=== PATIENT | male | born 1965 | race Caucasian/White ===

== ENCOUNTER 2022-05-17 14:48 | Outpatient (CLI) | payer OTHER | END 2022-05-17 14:49 | disposition home or self-care (01) | LOC: BICRAD 14:48 | PROVIDERS: ATTEND Nurse Practitioner Family | DX: J20.9 Acute bronchitis, unspecified (principal) | CPT/HCPCS: 71046 ==

== ENCOUNTER 2023-08-27 09:17 | Outpatient (CLI) | payer BC | END 2023-08-27 09:18 | disposition home or self-care (01) | LOC: RAD-FRANK 09:17 | PROVIDERS: ATTEND Nurse Practitioner Family | DX: R07.89 Other chest pain (principal) | CPT/HCPCS: 71046 ==

== ENCOUNTER 2023-09-06 07:51 | Outpatient (CLI) | payer OTHER | END 2023-09-06 07:52 | disposition home or self-care (01) | LOC: BICULT 07:51 | PROVIDERS: ATTEND Nurse Practitioner Family | DX: R10.12 Left upper quadrant pain (principal); K83.8 Other specified diseases of biliary tract; K76.0 Fatty (change of) liver, not elsewhere classified; N28.1 Cyst of kidney, acquired; R16.1 Splenomegaly, not elsewhere classified | CPT/HCPCS: 76700 ==

== ENCOUNTER 2024-09-08 07:17 | Outpatient (CLI) | payer OTHER | END 2024-09-08 07:18 | disposition home or self-care (01) | LOC: CT 07:17 | PROVIDERS: ATTEND Internal Medicine Gastroenterology | DX: R10.13 Epigastric pain (principal); R10.12 Left upper quadrant pain; Z12.11 Encounter for screening for malignant neoplasm of colon; K59.00 Constipation, unspecified; R79.89 Other specified abnormal findings of blood chemistry; F10.10 Alcohol abuse, uncomplicated | CPT/HCPCS: 74177; 82565 ==